=== PATIENT | male | born 1985 | race Two or more races ===

== ENCOUNTER 2020-04-07 08:01 | Emergency (ER) | payer OTHER ==
[2020-04-07 08:16] VITALS: BP 146/88; PULSE 105; TEMP 97.8
[2020-04-07 10:04] LABS: BASO % 0.4 % (0-2.0); EOS % 1.9 % (0-4.5); HEMATOCRIT 44.6 % (35.4-49); HEMOGLOBIN 15.3 GM/dL (11.7-16.9); LYMPH % 17.8 % (8-40); MCHC 34.3 g/dl (32.0-35.9); MEAN CELL VOLUME 93.3 fl (80-96); MEAN PLT VOLUME 8.3 fl (7.5-11.1); MONO % 5.9 % (3.8-10.2); PLATELET COUNT 238 K/MM3 (134-434); RBC 4.78 M/mm3 (4.00-5.60); RDW 12.7 % (11.9-15.9); WHITE BLOOD COUNT 9.5 K/mm3 (4.0-10.0)
[2020-04-07 10:25] LABS: CHLORIDE 102 mmol/L (98-107); POTASSIUM 4.3 mmol/L (3.5-5.1); SODIUM 134 mmol/L (136-145)
[2020-04-07 10:26] LABS: ALBUMIN 4.2 g/dl (3.4-5.0); CALCIUM 9.1 mg/dL (8.5-10.1)
[2020-04-07 10:28] LABS: ANION GAP 4 MMOL/L (8-16); BLOOD UREA NITROGEN 14.7 mg/dL (7-18); CO2 29 mmol/L (21-32); GLUCOSE,RANDOM 97 mg/dL (74-106)
[2020-04-07 10:31] LABS: SGOT/AST 51 U/L (15-37); SGPT/ALT 143 U/L (13-61)
[2020-04-07 10:32] LABS: BILIRUBIN,TOTAL 0.8 mg/dL (0.2-1); TOT PROT 8.9 g/dl (6.4-8.2)
[2020-04-07 10:33] LABS: ALK PHOS 64 U/L (45-117)
== END 2020-04-07 12:15 | disposition left against medical advice (07) ==
LOC: JER 08:01
DX: R07.9 Chest pain, unspecified (principal); H53.482 Generalized contraction of visual field, left eye
CPT/HCPCS: 36415; 70450-TC; 70480-TC; 71046-TC-FY; 80053; 82550; 82553; 84484; 85025; 93005; 93010; 99285-25